=== PATIENT | male | born 2000 | race Caucasian/White ===

== ENCOUNTER 2025-02-08 09:16 | Outpatient (CLI) | payer OTHER, SELFPAY ==
--- OUTSIDE RECORDS SUMMARY | 2025-02-08 09:24 | XMS_ITS | Clinical Summary ---
Author Organization [address] Address [facility] [place] [address] Care Team Providers Care Butcher Supervisor Name Role Phone Demetrio Wells MD Primary Care Provider [phone] Oskar Gonzales MD Unavailable + Allergies No known active allergies Medications methylphenidate HCl (RITALIN) 10 mg tabletIndications :Attention-Defici t Hyperactivity Disorder Take 1 tablet (10 mg total) by mouth early childhood education coordinator before breakfast 30 tablet 5 Active methylphenidate HCl (RITALIN) 10 mg tabletIndications :Attention-Defici t Hyperactivity Disorder Take 1 tablet (10 mg total) by mouth early childhood education coordinator before breakfast 30 tablet 5 025 Discontin ued(Reord er) Active Problems Problem Noted Date Diagnosed Date Well adult exam 04/16/2023 Assessment & Plan (04/16/2023 9:44 AM CDT): A(n) yearly well adult visit has been performed today. Doni Morales is not up to date on screening tests. He is in need of Cholesterol screening. He is not up to date on needed preventative vaccinations; He is in need of Tdap/Td, Influenza, and Covid-19 (booster). We discussed healthy lifestyle habits, educational material has been given. Medications reviewed, changes documented as per the medical record and discussed with patient along with risks vs benefits. Return in 1 year Chronic diarrhea 11/01/2022 Assessment & Plan (11/01/2022 12:44 PM CDT): Differentials include irritable bowel disease, inflammatory bowel disease, gluten enteropathy. If he responds to diet change, we will Hold off, but discussed prospect of GI referral. Recommended increased fiber in diet Improve hydration Continue probiotic Encounter for medical examination to establish c are 02/14/2022 Assessment & Plan (02/14/2022 2:45 PM CDT): A(n) initial well visit to establish care has been performed today. Doni Morales is up to date on screening tests. He is in need of None- no screening indicated at this time. He is not up to date on needed preventative vaccinations; He is in need of Tdap/Td and Covid-19 (booster). Refilled Adderall Labs as ordered Attention deficit hyperactiv ity disorder (ADHD), combined type 06/22/2017 Molluscum contagiosum infection 08/28/2011 Encounters Date Type Department Care Team Description 01/27/2025 9:15 AM CDT Office Visit [facility] Primary Care at [address] [address] Demetrio Wells MD Attention deficit hyperactivity disorder (ADHD), combined type (Primary Dx); Screening, lipid; Need for hepatitis C screening test from Last 3 Months Immunizations Immunization Administration Dates Next Due DTaP, Unspecified 11/24/2005, 2,04/09/2001,02/10/2001 ,2000 HPV, Quadrivalent 01/15/2015,01/11/2014,12/09/19 13 Hep A, Unspecified 06/08/2009,10/31/2008 Hep B, Unspecified 10/11/2001,2000, 001 HiB 01/07/2002,10/11/2001,02/10/2001 ,2000 Influenza, Unspecified 04/16/2023(Deferr ed: Patient Refused),07/07/2022(Deferred: Patient Refused),07/07/2021(Deferred: Patient Refused),01/24/2013 MMR 11/24/2005,10/11/2001 Meningococcal B, OMV (Bexsero) 01/28/2018,2017 Meningococcal Conjugate (Menveo) 12/08/2016 Meningococcal MCV4P (Menactra) 12/08/2012,2011 Polio, Unspecified 11/24/2005,04/09/2001, 001,2000 Tdap 04/16/2023,10/16/2010 Varicella 11/23/2007,10/11/2001 Surgical History Surgery Date Site/Laterality Comments SKIN SURGERY 06/22/2010 - 06/21/2011 Medical History Medical History Date Comments Attention deficit hyperactivity disorder (ADHD), combined type 2018 Family History Medical History Relation Name Comments No Known Problems Brother No Known Problems Maternal Grandfather No Known Problems Maternal Grandmother No Known Problems Mother No Known Problems Paternal Grandfather No Known Problems Paternal Grandmother No Known Problems Sister Relation Name Status Comments Brother Alive Father Alive Maternal Grandfather Alive Maternal Grandmother Alive Mother Alive Paternal Grandfather Alive Paternal Grandmother Alive Sister Alive Social History Tobacco Use Types Packs/Day Years Used Date Smoking Tobacco: Never Vaping Passive Smoke Exposure: Yes Smokeless Tobacco: Never Tobacco Cessation:Counseling Given: Not Answered Comments:Use sometimes on occasion not every day AUDIT-C Answer Date Recorded Q1: How often do you have a drink containing alc ohol? 2-4 times a month 10/27/2024 Q2: How many drinks containi ng alcohol do you have on a typical day when you are drinking? 3 or 4 10/27/2024 Q3: How often do you have si x or more drinks on one occasion? 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 file 06/22/2022 Not on file Obstetrics History Last Filed Vital Signs Vital Sign Reading Time Taken Comments Blood Pressure 100/60 01/27/2025 9:22 AM CDT Pulse 50 01/27/2025 9:22 AM CDT Temperature 36.3 C (97.3 F) 01/27/2025 9:22 AM CDT Respiratory Rate 14 01/27/2025 9:22 AM CDT Oxygen Saturation 98% 01/27/2025 9:22 AM CDT Inhaled Oxygen Concentration - - Weight 71.2 kg (157 lb) 01/27/2025 9:22 AM CDT Height 175.3 cm (5' 9) 01/27/2025 9:22 AM CDT Body Mass Index 23.18 01/27/2025 9:22 AM CDT Plan of Treatment Health Maintenance Due Date Last Done Comments Hepatitis C Screening 2000 Covid-19 Vaccine ( season) 2024 02/07/2021, 01/16/2021 Regular Well Visit/Exam 18-64 04/16/2024 04/16/2023, 02/11/2022 Influenza Vaccine (#1) 2025 01/24/2013 Depression Screening 01/27/2026 01/27/2025, 04/16/2023, 10/30/2022, Additional history exists DTaP/Tdap/Td Vaccine (8 - Td or Tdap) 04/16/2033 04/16/2023, 10/16/2010, 11/24/2005, Additional history exists Hepatitis B Screening Completed 10/11/2001 , 2000, 2000 Varicella Vaccines Completed 11/23/2007, 10/11/2001 HPV Vaccines Completed 01/15/2015, 12/21, 12/08/2012 Pneumococcal vaccine <65 Aged Out No longer eligible based on patient's age to complete this topic Insurance [facility] Care Teams Butcher Supervisor Relationship Specialty Start Date End Date Demetrio Wells MD [address] [place] [address] PCP - General Family Medicine 02/11/22 Oskar Gonzales MD [address] [place] [address] [place] [address] Referring Physician Gastroenterology 01/27/25
[2025-02-08 10:03] LABS: Hematocrit 45.7 % (42.0-52.0); Hemoglobin 15.2 g/dL (14.0-18.0); Mean Corpuscular HGB Conc 33.3 g/dl (32-36); Mean Corpuscular Hemoglobin 29.9 pg (26-34); Mean Corpuscular Volume 89.8 fl (80-100); Platelet Count Result 190 k/mm3 (150-375); Red Blood Count 5.09 M/mm3 (4.6-6.20); White Blood Count 5.0 K/mm3 (4.5-10.0)
[2025-02-08 10:24] LABS: Iron 81 ug/dL (49-181)
[2025-02-08 10:28] LABS: CRP < 0.5 mg/dL (<1.0)
[2025-02-08 10:34] LABS: Percent Iron Saturation 21 % (20-50)
[2025-02-08 11:01] LABS: Thyroid Stimulating Hormone Reflex 1.560 uIU/mL (0.465-4.68)
[2025-02-08 11:05] LABS: Ferritin 30.50 ng/mL (17.9-464)
[2025-02-08 11:20] LABS: Vitamin B12 384.0 pg/mL (239-931)
[2025-02-10 07:09] LABS: Deamidated Gliadin Abs, IgA 2 units (0-19); Deamidated Gliadin Abs, IgG <1 units (0-19); Immunoglobulin A, Qn 228 mg/dL (90-386)
[2025-02-18 04:07] LABS: 1,25-Dihydroxy, Vitamin D-2 <10 pg/mL (.); 1,25-Dihydroxy, Vitamin D-3 68 pg/mL (.); Total 1,25-Dihydroxy,Vitamin D 75 pg/mL (.)
== END 2025-02-08 09:17 | disposition home or self-care (01) ==
LOC: ANHLAB 09:17
PROVIDERS: PCP Family Medicine; Visit Provider Nurse Practitioner
DX: F90.9 Attention-deficit hyperactivity disorder, unspecified type (principal); K52.9 Noninfective gastroenteritis and colitis, unspecified; R53.83 Other fatigue
CPT/HCPCS: 36415; 82607; 82652; 82728; 82784; 83540; 83550; 84443; 85027; 85652; 86140; 86231; 86258